=== PATIENT | female | born 1965 | race Caucasian/White ===

== ENCOUNTER 2017-05-04 15:12 | Observation (INO) | payer OTHER ==
[~2017-05-04] VITALS: Ht 152.4 cm; Wt 88.5 kg
[~2017-05-04 15:12] MED LIST: ESTR1 PO; REST30CA PO; ZOCO40TA PO
--- NOTE | 2017-05-04 15:19 | PD ---
Physical Exam Time Seen by Provider: 15:17 Narrative 59-year-old female presents emergency Department with complaint of right-sided facial droop that she noticed last night around 8 or 9:00pm. Went to urgent care and was told to come to the emergency department. Denies any other focal deficits or weakness. Reports right-sided headache. Right-sided facial droop noted in triage. Speech clear. Patient seen in triage. Vital signs reviewed. Patient awaiting bed placement. MDM Supervised Visit with GREG: Joselyn Locke May 04, 2017 15:19
[2017-05-04 16:48] VITALS: BP 168/75; PULSE 90; RESP 15; TEMP 97.9; O2SAT 98
[2017-05-04 16:56] VITALS: O2SAT 99
[2017-05-04] MEDS ORDERED: SODIUM CHLORIDE 0.9% FLUSH 10 ML FLUSH IVF PRN (17:00)
--- NOTE | 2017-05-04 17:00 | PD ---
HPI Chief Complaint: Neuro Symptoms/ Deficits Time Seen by Provider: 16:51 Travel History International Travel<30 days: No Contact w/Intl Traveler<30days: No Traveled to known affect area: No History of Present Illness HPI 51-year-old female patient with history of lupus, presents to the ER today because of right sided neck pain that started when she bent her neck last night , and woke up this morning noticing a right facial droop. She did not have any trouble walking, talking, arm or leg numbness or weakness, or any other symptoms. She still complains of a headache as well. She had been seen at an urgent care and was told to come to the ER for further evaluation. No vomiting or other symptoms. Modifying Factors: None Associated Signs & Symptoms: Right sided neck pain, right facial droop, headache Risk Factors: None PFSH Past Medical History Autoimmune Disease: Yes (LUPUS) Cancer: No Cardiovascular Problems: No Glaucoma: No Hepatitis: No Hiatal Hernia: No Hypertension: No Neurologic: No Respiratory: No Thyroid Disease: No ?: Not Past Surgical History Eye Surgery: Yes (LEFT EYE FOR GLASS) Gynecologic Surgery: Yes (HYSTERECTOMY) Hysterectomy: Yes Other Surgery: Yes (HERNIA) Social History Alcohol Use: No Tobacco Use: Yes (1 PACK A DAY FOR 20 YEARS, STOPPED 09/02) Substance Use: No Allergies-Medications (Allergen,Severity, Reaction): Coded Allergies: aspirin (Unverified Allergy, Mild, Nausea/Vomiting, 05/04/17) ibuprofen (Unverified Allergy, Mild, CRAMPS, 05/04/17) Reported Meds & Prescriptions Reported Meds & Active Scripts Active Reported Vitamin D-1000 (Cholecalciferol) 1,000 Unit Tab 1,000 Units PO DAILY Levothyroxine (Levothyroxine Sodium) 100 Mcg Tab 100 Mcg PO DAILY Trazodone (Trazodone HCl) 150 Mg Tablet 150 Mg PO HS Cymbalta DR (Duloxetine HCl) 60 Mg Capdr 60 Mg PO BID Gabapentin 600 Mg Tab 600 Mg PO TID Gabapentin 300 Mg Cap 900 Mg PO HS Review of Systems Except as stated in HPI: all other systems reviewed are Neg Physical Exam Narrative GENERAL: Well-developed middle age white female patient currently in mild distress. Awake and oriented 3. SKIN: Focused skin assessment warm/dry. HEAD: Atraumatic. Normocephalic. EYES: Pupils equal and round. No scleral icterus. No injection or drainage. ENT: No nasal bleeding or discharge. Mucous membranes pink and moist. NECK: Trachea midline. No JVD. CARDIOVASCULAR: Regular rate and rhythm. No murmur appreciated. RESPIRATORY: No accessory muscle use. Clear to auscultation. Breath sounds equal bilaterally. GASTROINTESTINAL: Abdomen soft, non-tender, nondistended. Hepatic and splenic margins not palpable. MUSCULOSKELETAL: No obvious deformities. No clubbing. No cyanosis. No edema. NEUROLOGICAL: Awake and alert. Ambulatory in the ER. Notable right facial droop, CN II-12 otherwise grossly intact. Motor grossly within normal limits. Normal speech. No pronator drift. PSYCHIATRIC: Appropriate mood and affect; insight and judgment normal. Data Data Last Documented VS Vital Signs Date Time Temp Pulse Resp B/P (MAP) Pulse Ox O2 Delivery O2 Flow Rate FiO2 05/04/17 16:56 99 Room Air 05/04/17 16:48 97.9 90 15 Orders Orders Electrocardiogram (05/04/17 16:51) Prothrombin Time / Inr (Pt) (05/04/17 16:51) Act Partial Throm Time (Ptt) (05/04/17 16:51) Complete Blood Count With Diff (05/04/17 16:51) Comprehensive Metabolic Panel (05/04/17 16:51) Ct Brain W/O Iv Contrast(Rout) (05/04/17 16:51) Ecg Monitoring (05/04/17 16:51) Iv Access Insert/Monitor (05/04/17 16:51) Oximetry (05/04/17 16:51) Sodium Chloride 0.9% Flush (Ns Flush) (05/04/17 17:00) Ct Cerv Spine W/O Contrast (05/04/17 16:51) Dexamethasone Inj (Decadron Inj) (05/04/17 19:15) Aspirin Ec (Ecotrin Ec) (05/04/17 19:15) Mri Brain W&W/O Contrast (05/04/17 19:11) Mra Brain W/O Contrast (Cow) (05/04/17 19:11) Mra Carotids W Contrast (05/04/17 19:11) Admit Order (Ed Use Only) (05/04/17 19:39) Labs Laboratory Tests Test 05/04/17 17:10 White Blood Count 6.3 TH/MM3 Red Blood Count 4.64 MIL/MM3 Hemoglobin 13.5 GM/DL Hematocrit 41.1 % Mean Corpuscular Volume 88.6 FL Mean Corpuscular Hemoglobin 29.2 PG Mean Corpuscular Hemoglobin Concent 32.9 % Red Cell Distribution Width 13.3 % Platelet Count 295 TH/MM3 Mean Platelet Volume 7.3 FL Neutrophils (%) (Auto) 54.2 % Lymphocytes (%) (Auto) 36.8 % Monocytes (%) (Auto) 6.6 % Eosinophils (%) (Auto) 1.5 % Basophils (%) (Auto) 0.9 % Neutrophils # (Auto) 3.4 TH/MM3 Lymphocytes # (Auto) 2.3 TH/MM3 Monocytes # (Auto) 0.4 TH/MM3 Eosinophils # (Auto) 0.1 TH/MM3 Basophils # (Auto) 0.1 TH/MM3 CBC Comment DIFF FINAL Differential Comment Prothrombin Time 10.2 SEC Prothromb Time International Ratio 0.9 RATIO Activated Partial Thromboplast Time 26.2 SEC Blood Urea Nitrogen 14 MG/DL Creatinine 1.01 MG/DL Random Glucose 82 MG/DL Total Protein 7.9 GM/DL Albumin 3.9 GM/DL Calcium Level 9.2 MG/DL Alkaline Phosphatase 105 U/L Aspartate Amino Transf (AST/SGOT) 15 U/L Alanine Aminotransferase (ALT/SGPT) 27 U/L Total Bilirubin 0.2 MG/DL Sodium Level 138 MEQ/L Potassium Level 4.2 MEQ/L Chloride Level 103 MEQ/L Carbon Dioxide Level 29.8 MEQ/L Anion Gap 5 MEQ/L Estimat Glomerular Filtration Rate 58 ML/MIN [facility] Medical Decision Making Medical Screen Exam Complete: Yes Emergency Medical Condition: Yes Medical Record Reviewed: Yes Interpretation(s) EKG shows NSR, no ST elevation or depression, and no arrhythmias. No significant T-wave inversions. Laboratory Tests Test 05/04/17 17:10 Creatinine 1.01 MG/DL (0.50-1.00) Estimat Glomerular Filtration Rate 58 ML/MIN (>89) Last [address] 05/04/171650 Signed Impressions: Service Date/Time: Thursday, May 04, 2017 17:40 - CONCLUSION: Normal examination for a patient of this age. Rinku Latham MD Cervical Spine CT 05/04/171650 Signed Impressions: Service Date/Time: Thursday, May 04, 2017 17:40 - CONCLUSION: Mild primary degenerative type changes at C4-5 and C5-6 characteristic of patients age. Rinku Latham MD Differential Diagnosis Right facial droop, right sided neck pain: Radiculopathy versus Hernadez's palsy versus central related neuropathy versus CVA Narrative Course CAT scan did not show any obvious acute processes. Patient's neck is supple on evaluation. She has no other focal neurological deficits except for the facial symptoms. I actually do see some asymmetry in her forehead although this case does present some other underlying symptoms and the case was discussed with Dr. Gupta who states that the patient should get an MRI/MRA of the brain and carotid for further evaluation to rule out carotid dissection. He wants me to give Decadron and low dose aspirin. Case is discussed with Dr. Sorenson for admission. Diagnosis Primary Impression: Facial droop Admitting Information Admitting Physician Requests: Admit Desi Zhou MD May 04, 2017 17:00
[2017-05-04] MEDS ORDERED: GABA300C5 PO (17:04)
[2017-05-04] MEDS ORDERED: CYMB60CA PO (17:04)
[2017-05-04] MEDS ORDERED: TRAZ1TAB45 PO (17:04)
[2017-05-04] MEDS ORDERED: VITA1000 PO (17:04)
[2017-05-04] MEDS ORDERED: GABA600T PO (17:04)
[2017-05-04] MEDS ORDERED: LEVO100T5 PO (17:04)
[2017-05-04 17:17] LABS: HEMATOCRIT 41.1 % (35.0-46.0); MEAN CELL VOLUME 88.6 FL (80.0-100.0); MEAN CORPUSCULAR HEMOGLOBIN 29.2 PG (27.0-34.0); MEAN CORPUSCULAR HGB CONC 32.9 % (32.0-36.0); RED BLOOD COUNT 4.64 MIL/MM3 (4.00-5.30); WHITE BLOOD COUNT 6.3 TH/MM3 (4.0-11.0)
[2017-05-04 17:18] LABS: AUTOMATED NEUTROPHIL # 3.4 TH/MM3 (1.8-7.7); BASOPHIL # 0.1 TH/MM3 (0-0.2); BASOPHIL % 0.9 % (0.0-2.0); EOSINOPHIL # 0.1 TH/MM3 (0-0.4); EOSINOPHIL % 1.5 % (0.0-4.0); HEMO FLAGS DIFF FINAL; LYMPH % 36.8 % (9.0-44.0); LYMPHOCYTE # 2.3 TH/MM3 (1.0-4.8); MONO % 6.6 % (0.0-8.0); NEUT % 54.2 % (16.0-70.0); PLATELET COUNT 295 TH/MM3 (150-450); RED CELL DISTRIBUTION WIDTH 13.3 % (11.6-17.2)
[2017-05-04 17:26] LABS: APTT (PATIENT) 26.2 SEC (24.3-30.1); INTERNATIONAL NORMALIZED RATIO 0.9 RATIO; PROTHROMBIN TIME - PATIENT 10.2 SEC (9.8-11.6)
[2017-05-04 17:38] LABS: ALT (GPT) 27 U/L (10-53); ANION GAP 5 MEQ/L (5-15); AST (GOT) 15 U/L (15-37); BICARBONATE 29.8 MEQ/L (21.0-32.0); BLOOD UREA NITROGEN 14 MG/DL (7-18); CHLORIDE 103 MEQ/L (98-107); GLOMERULAR FILTRATION RATE 58 ML/MIN (>89); POTASSIUM 4.2 MEQ/L (3.5-5.1); SODIUM (NA) 138 MEQ/L (136-145)
[2017-05-04 17:40] LABS: ALKALINE PHOSPHATASE 105 U/L (45-117); TOTAL BILIRUBIN ADULT 0.2 MG/DL (0.2-1.0)
--- NOTE | 2017-05-04 17:47 | RADRPT ---
EXAM DATE/TIME: 05/04/2017 17:40 [facility] COMPARISON: No previous studies available for comparison. INDICATIONS : Right sided weakness since last night. RADIATION DOSE: 31.84 CTDIvol (mGy) MEDICAL HISTORY : Lupus SURGICAL HISTORY : Hysterectomy. ENCOUNTER: Initial ACUITY: 2 days PAIN SCALE: 8/10 LOCATION: Right cranial TECHNIQUE: Multiple contiguous axial images were obtained of the head. Using automated exposure control and adj ustment of the mA and/or kV according to patient size, radiation dose was kept as low as reasonably a chievable to obtain optimal diagnostic quality images. DICOM format image data is available electro nically for review and comparison. FINDINGS: CEREBRUM: The ventricles are normal for age. No evidence of midline shift, mass lesion, hemorrhage or acute in farction. No extra-axial fluid collections are seen. POSTERIOR FOSSA: The cerebellum and brainstem are intact. The 4th ventricle is midline. The cerebellopontine angle i s unremarkable. EXTRACRANIAL: The visualized portion of the orbits is intact. SKULL: The calvaria is intact. No evidence of skull fracture. CONCLUSION: Normal examination for a patient of this age. Rinku Latham MD on May 04, 2017 at 17:45 Board Certified Radiologist. This report was verified electronically.
--- NOTE | 2017-05-04 18:08 | RADRPT ---
EXAM DATE/TIME: 05/04/2017 17:40 [facility] COMPARISON: No previous studies available for comparison. INDICATIONS : Neck pain since last night. RADIATION DOSE: 20.10 CTDIvol (mGy) MEDICAL HISTORY : Lupus. SURGICAL HISTORY : Hysterectomy. ENCOUNTER: Initial ACUITY: 2 days PAIN SCALE: 6/10 LOCATION: Right neck region. TECHNIQUE: Volumetric scanning of the cervical spine was performed. Multiplanar reconstructions in the sagittal, coronal and oblique axial planes were performed. Using automated exposure control and adjustment o f the mA and/or kV according to patient size, radiation dose was kept as low as reasonably achievable to obtain optimal diagnostic quality images. DICOM format image data is available electronically f or review and comparison. FINDINGS: VERTEBRAE: Normal vertebral body height. There are mild degenerative type changes involving the cervical spine a t C4-5 and C5-6. No compression fracture injuries are demonstrated. ALIGNMENT: No evidence of subluxation. C2-C3: The bony spinal canal is normal in size. No evidence of disc bulge or herniation. The neural forami na are bilaterally patent. C3-C4: The bony spinal canal is normal in size. No evidence of disc bulge or herniation. The neural forami na are bilaterally patent. C4-C5: The bony spinal canal is normal in size. No evidence of disc bulge or herniation. The neural forami na are bilaterally patent. C5-C6: The bony spinal canal is normal in size. No evidence of disc bulge or herniation. The neural forami na are bilaterally patent. C6-C7: The bony spinal canal is normal in size. No evidence of disc bulge or herniation. The neural forami na are bilaterally patent. C7-T1: The bony spinal canal is normal in size. No evidence of disc bulge or herniation. The neural forami na are bilaterally patent. CONCLUSION: Mild primary degenerative type changes at C4-5 and C5-6 characteristic of patients age. Rinku Lahtam MD on May 04, 2017 at 18:04 Board Certified Radiologist. This report was verified electronically.
[2017-05-04] MEDS ORDERED: ASPIRIN EC 81 MG TABEC PO ONE (19:15)
[2017-05-04] MEDS ORDERED: DEXAMETHASONE SOD PHOS 20 MG/5 ML VIAL IV PUSH ONE (19:15)
[2017-05-04] MEDS ORDERED: SODIUM CHLOR 0.45% 1000 ML INJ 1,000 ML IV SCH (21:00)
--- NOTE | 2017-05-04 21:10 | RADRPT ---
EXAM DATE/TIME: 05/04/2017 20:33 [facility] COMPARISON: No previous studies available for comparison. INDICATIONS : Right side facial paralysis MEDICAL HISTORY : None. SURGICAL HISTORY : Hysterectomy. Hernia, Eyes (f/b removal), Carpal Tunnel ENCOUNTER: Initial ACUITY: 1 day PAIN SCORE: 0/10 LOCATION: cranial Please note a normal MRA of the brain does not entirely exclude the possibility of a small aneurysm, nor the possibility of distal intracranial vessel disease. TECHNIQUE: 3D time of flight MRA was performed. Source images, multiplanar STS MIP, and 3D volume MIP reconstru ctions were reviewed. FINDINGS: There is excellent visualization of the major intracranial arteries out to the second-order branch ve ssels. There is no evidence for aneurysm, vessel truncation or stenosis, and no evidence for vascula r malformation. CONCLUSION: Normal examination for a patient of this age. Rinku Latham MD on May 04, 2017 at 21:07 Board Certified Radiologist. This report was verified electronically.
[2017-05-04] MEDS ORDERED: ACETAMINOPHEN/HYDROcodone 325 MG/5 MG TAB PO PRN (21:15)
[2017-05-04] MEDS ORDERED: SENNOSIDES 8.6 MG TAB PO PRN (21:15)
[2017-05-04] MEDS ORDERED: BISACODYL 10 MG SUPP RECTAL PRN (21:15)
[2017-05-04] MEDS ORDERED: LACTULOSE SYRUP 20 GM/30 ML CUP PO PRN (21:15)
[2017-05-04] MEDS ORDERED: ACETAMINOPHEN 325 MG TAB PO PRN (21:15)
[2017-05-04] MEDS ORDERED: NALOXONE HCL 0.4 MG/ML AMP IV PUSH PRN (21:15)
[2017-05-04] MEDS ORDERED: MAGNESIUM HYDROXIDE SUSP 30 ML CUP PO PRN (21:15)
[2017-05-04] MEDS ORDERED: SODIUM CHLORIDE 0.9% FLUSH 10 ML FLUSH IV FLUSH PRN (21:15)
--- NOTE | 2017-05-04 21:22 | HHI.HP ---
HPI Service [facility] Hospitalists Primary Care Physician Hussain Mac MD Admission Diagnosis facial droop/possible CVA Chief Complaint: facial droop today with headache Travel History International Travel<30 Days: No Contact w/Intl Traveler <30 Da: No Traveled to Known Affected Are: No History of Present Illness 51-year-old female patient with history of lupus, presents to the ER today because of right sided neck pain that started when she bent her neck last night , and woke up this morning noticing a right facial droop. She did not have any trouble walking, talking, arm or leg numbness or weakness, or any other symptoms except for headache. She still complains of a headache as well. She had been seen at an urgent care and was told to come to the ER for further evaluation. No vomiting or other symptoms. Patient does have neuropathy and lupus and has been on gabapentin and cymbalta. Review of Systems Neurologic: COMPLAINS OF: Headache Other facial droop Past Family Social History Past Medical History lupus , neuropathy hypothyroid Past Surgical History hysterectomy,hernia,left eye surgery glass accident Reported Medications [id number] bid,gabapentin 600 tid 900 hs trazadone 150 levothyroxine 100 vit k Allergies: Coded Allergies: aspirin (Unverified Allergy, Mild, Nausea/Vomiting, 05/04/17) ibuprofen (Unverified Allergy, Mild, CRAMPS, 05/04/17) Social History smoked until 09/02 no ETOH Physical Exam Vital Signs Vital Signs Date Time Temp Pulse Resp B/P (MAP) Pulse Ox O2 Delivery O2 Flow Rate FiO2 05/04/17 16:56 99 Room Air 05/04/17 16:48 97.9 90 15 168/75 (106) 98 Room Air Physical Exam GENERAL: This is a well-nourished, well-developed patient, in no apparent distress. SKIN: No rashes, ecchymoses or lesions. Cool and dry. HEAD: Atraumatic. Normocephalic. No temporal or scalp tenderness. EYES: Pupils equal round and reactive. Extraocular motions intact. No scleral icterus. No injection or drainage. ENT: Nose without bleeding, purulent drainage or septal hematoma. Throat without erythema, tonsillar hypertrophy or exudate. Uvula midline. Airway patent. NECK: Trachea midline. No JVD or lymphadenopathy. Supple, nontender, no meningeal signs. CARDIOVASCULAR: Regular rate and rhythm without murmurs, gallops, or rubs. RESPIRATORY: Clear to auscultation. Breath sounds equal bilaterally. No wheezes , rales, or rhonchi. GASTROINTESTINAL: Abdomen soft, non-tender, nondistended. No hepato-splenomegaly , or palpable masses. No guarding. MUSCULOSKELETAL: Extremities without clubbing, cyanosis, or edema. No joint tenderness, effusion, or edema noted. No calf tenderness. Negative Homans sign bilaterally. NEUROLOGICAL: Awake and alert. RT facial droop . Motor and sensory grossly within normal limits. Five out of 5 muscle strength in all muscle groups. Normal speech. Laboratory Laboratory Tests Test 05/04/17 17:10 White Blood Count 6.3 Red Blood Count 4.64 Hemoglobin 13.5 Hematocrit 41.1 Mean Corpuscular Volume 88.6 Mean Corpuscular Hemoglobin 29.2 Mean Corpuscular Hemoglobin Concent 32.9 Red Cell Distribution Width 13.3 Platelet Count 295 Mean Platelet Volume 7.3 Neutrophils (%) (Auto) 54.2 Lymphocytes (%) (Auto) 36.8 Monocytes (%) (Auto) 6.6 Eosinophils (%) (Auto) 1.5 Basophils (%) (Auto) 0.9 Neutrophils # (Auto) 3.4 Lymphocytes # (Auto) 2.3 Monocytes # (Auto) 0.4 Eosinophils # (Auto) 0.1 Basophils # (Auto) 0.1 CBC Comment DIFF FINAL Differential Comment Prothrombin Time 10.2 Prothromb Time International Ratio 0.9 Activated Partial Thromboplast Time 26.2 Blood Urea Nitrogen 14 Creatinine 1.01 Random Glucose 82 Total Protein 7.9 Albumin 3.9 Calcium Level 9.2 Alkaline Phosphatase 105 Aspartate Amino Transf (AST/SGOT) 15 Alanine Aminotransferase (ALT/SGPT) 27 Total Bilirubin 0.2 Sodium Level 138 Potassium Level 4.2 Chloride Level 103 Carbon Dioxide Level 29.8 Anion Gap 5 Estimat Glomerular Filtration Rate 58 Result Diagram: 05/04/17170905/04/171709 Imaging Last [address] 05/04/171650 Signed Impressions: Service Date/Time: Thursday, May 04, 2017 17:40 - CONCLUSION: Normal examination for a patient of this age. Rinku Latham MD Cervical Spine CT 05/04/171650 Signed Impressions: Service Date/Time: Thursday, May 04, 2017 17:40 - CONCLUSION: Mild primary degenerative type changes at C4-5 and C5-6 characteristic of patients age. Rinku Latham MD Course ER contacted neurology wants decadron and asa given obtain mri mra scan and admit Caprini VTE Risk Assessment Caprini VTE Risk Assessment: Mod/High Risk (score >= 2) Caprini Risk Assessment Model Point Value = 1 Point Value = 2 Point Value = 3 Point Value = 5 Age 41-60 Minor surgery BMI > 25 kg/m2 Swollen legs Varicose veins or History of unexplained or recurrent spontaneous Oral contraceptives or hormone replacement Sepsis (< 1 month) Serious lung disease, including pneumonia (< 1 month) Abnormal pulmonary function Acute myocardial infarction Congestive heart failure (< 1 month) History of inflammatory bowel disease Medical patient at bed rest Age 61-74 Arthroscopic surgery Major open surgery (> 45 min) Laparoscopic surgery (> 45 min) Malignancy Confined to bed (> 72 hours) Immobilizing plaster cast Central venous access Age >= 75 History of VTE Family history of VTE Factor V Leiden Prothrombin [id number] Lupus anticoagulant Anticardiolipin antibodies Elevated serum homocysteine Heparin-induced thrombocytopenia Other congenital or acquired thrombophilia Stroke (< 1 month) Elective arthroplasty Hip, pelvis, or leg fracture Acute spinal cord injury (< 1 month) Prophylaxis Regimen Total Risk Factor Score Risk Level Prophylaxis Regimen 0-1 Low Early ambulation 2 Moderate Order ONE of the following: *Sequential Compression Device (SCD) *Heparin 5000 units SQ BID 3-4 Higher Order ONE of the following medications: *Heparin 5000 units SQ TID *Enoxaparin/Lovenox 40 mg SQ daily (WT < 150 kg, CrCl > 30 mL/min) *Enoxaparin/Lovenox 30 mg SQ daily (WT < 150 kg, CrCl > 10-29 mL/min) *Enoxaparin/Lovenox 30 mg SQ BID (WT < 150 kg, CrCl > 30 mL/min) AND/OR *Sequential Compression Device (SCD) 5 or more Highest Order ONE of the following medications: *Heparin 5000 units SQ TID (Preferred with Epidurals) *Enoxaparin/Lovenox 40 mg SQ daily (WT < 150 kg, CrCl > 30 mL/min) *Enoxaparin/Lovenox 30 mg SQ daily (WT < 150 kg, CrCl > 10-29 mL/min) *Enoxaparin/Lovenox 30 mg SQ BID (WT < 150 kg, CrCl > 30 mL/min) AND *Sequential Compression Device (SCD) Assessment and Plan Problem List: (1) Facial droop ICD Codes: R29.810 - Facial weakness Status: Acute Plan: will admit r/o cva mri mra as per neurology decadron and asa (2) Headache ICD Codes: R51 - Headache Status: Acute Plan: mri mra tylenol and may use loratab (3) Lupus ICD Codes: 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 In the case of services not specified as inpatient-only, they are appropriately provided as inpatient services in accordance with the 2-midnight benchmark. Estimated LOS (days): 2 2 days is the estimated time the patient will need to remain in the hospital, assuming treatment plan goals are met and no additional complications. Post-Hospital Plan: Not yet determined Marcel Tapia MD May 04, 2017 21:22
--- NOTE | 2017-05-04 21:56 | RADRPT ---
EXAM DATE/TIME: 05/04/2017 20:33 [facility] COMPARISON: CT BRAIN W/O CONTRAST, May 04, 2017, 17:40. INDICATIONS : Right side facial paralysis CONTRAST: 20 cc Omniscan (gadodiamide) IV MEDICAL HISTORY : None. SURGICAL HISTORY : Hysterectomy. Eyes (f/b removal), hernia, carpal tunnel ENCOUNTER: Initial ACUITY: 1 day PAIN SCORE: 0/10 LOCATION: cranial TECHNIQUE: Multiplanar, multisequence MRI of the brain was performed both prior to and following the administrat ion of paramagnetic contrast. FINDINGS: CEREBRUM: The ventricles are normal for age. No evidence of midline shift, mass lesion, hemorrhage or acute in farction. No extraaxial fluid collections are seen. The pituitary gland and suprasellar cistern are normal in configuration. WHITE MATTER: No significant signal abnormalities are seen in the white matter. POSTERIOR FOSSA: The cerebellum and brainstem are intact. The 4th ventricle is midline. The cerebellopontine angle is unremarkable. The cerebellar tonsils are normal in position. DIFFUSION IMAGING: No focal areas of restricted diffusion are seen. No evidence of acute infarction. EXTRACRANIAL: The visualized portions of the orbits and paranasal sinuses are unremarkable. POST-CONTRAST: No abnormal areas of parenchymal or dural enhancement. No evidence of blood-brain barrier breakdown. CONCLUSION: Normal examination for a patient of this age. Rinku Latham MD on May 04, 2017 at 21:53 Board Certified Radiologist. This report was verified electronically.
--- NOTE | 2017-05-04 22:03 | RADRPT ---
EXAM DATE/TIME: 05/04/2017 20:33 [facility] COMPARISON: No previous studies available for comparison. INDICATIONS : Right side facial paralysis CONTRAST: 20 cc Omniscan (gadodiamide) IV MEDICAL HISTORY : None. SURGICAL HISTORY : Hysterectomy. Eyes (f/b removal), Hernia, Carpal Tunnel ENCOUNTER: Initial ACUITY: 1 day PAIN SCORE: 0/10 LOCATION: cranial Percent stenosis is calculated using the diameter of the stenotic region over the diameter of the nor mal distal internal carotid artery. TECHNIQUE: Bolus infused MRA of the extracranial circulation was performed using a neurovascular coil. Post pro cessing was performed including rotating subvolume maximum intensity projections of each carotid favian ry, rotating full volume maximum intensity projections of both carotid arteries, sagittal and coronal sliding thin slab reformations of each carotid artery, and left oblique sliding thin slab reformatio n through the aortic arch to include the origin of the arch branch vessels. FINDINGS: AORTIC ARCH: There is a three vessel origin of the great vessels from the aorta. No evidence of ostial narrowing. RIGHT CAROTID: The common carotid artery is intact. The carotid bulb has a normal configuration without ulceration or narrowing. The internal carotid artery lumen is smooth without stenosis. The external carotid ar elizabeth is intact. LEFT CAROTID: The common carotid artery is intact. The carotid bulb has a normal configuration without ulceration or narrowing. The internal carotid artery lumen is smooth without stenosis. The external carotid ar elizabeth is intact. VERTEBRALS: The vertebral arteries have a symmetric diameter. No stenotic lesions are seen. CONCLUSION: Normal examination for a patient of this age. Rinku Latham MD on May 04, 2017 at 22:01 Board Certified Radiologist. This report was verified electronically.
[2017-05-04] MEDS ORDERED: GADODIAMIDE PF 287 MG/ML 5 ML VIAL (for RAD MRI) IVCONTRAST ONE (22:17)
[2017-05-04] MEDS ORDERED: traZODone HCL 100 MG TAB PO SCH (23:15)
[2017-05-04] MEDS ORDERED: DULoxetine HCl DR 60 MG CAP PO SCH (23:15)
[2017-05-04] MEDS ORDERED: GABAPENTIN 300 MG CAP PO SCH (23:15)
[2017-05-05] VITALS: BP 118/70; PULSE 74; RESP 20; TEMP 97.9; O2SAT 94
[2017-05-05 04:00] VITALS: BP 123/66; PULSE 96; RESP 20; TEMP 98; O2SAT 92
[2017-05-05] MEDS ORDERED: LEVOTHYROXINE SODIUM 100 MCG TAB PO SCH (07:00)
[2017-05-05 08:00] VITALS: BP 111/64; PULSE 103; RESP 16; TEMP 98.4; O2SAT 93
[2017-05-05] MEDS ORDERED: SODIUM CHLORIDE 0.9% FLUSH 10 ML FLUSH IV FLUSH SCH (09:00)
[2017-05-05] MEDS ORDERED: DULoxetine HCl DR 60 MG CAP PO SCH (09:00)
[2017-05-05] MEDS ORDERED: DOCUSATE SODIUM 50 MG/SENNA 8.6 MG TAB PO SCH (09:00)
[2017-05-05] MEDS ORDERED: CHOLECALCIFEROL (VIT D3) 1000 UNIT TAB PO SCH (09:00)
[2017-05-05] MEDS: GABAPENTIN 300 MG CAP PO SCH ×2 (09:31→13:39)
[2017-05-05 12:00] VITALS: BP 117/74; PULSE 104; RESP 16; TEMP 99.1; O2SAT 95
--- NOTE | 2017-05-05 12:13 | EKG ---
Date Performed: 05/04/2017 Time Performed: 17:19:28 PTAGE: 51 years EKG: Sinus rhythm NORMAL ECG Compared to prior tracing no significant change PREVIOUS TRACING : 02/17/2009 08.45 DOCTOR: Amarilis Sampson Interpretating Date/Time 05/05/2017 12:12:04
[2017-05-05] MEDS ORDERED: valACYclovir HCL 500 MG TAB PO ONE (14:45)
[2017-05-05] MEDS ORDERED: methylPREDNISolone SOD SUCC 125 MG/2 ML VIAL IV PUSH ONE (14:45)
[2017-05-05] MEDS ORDERED: HYDR-3516 PO (14:50)
[2017-05-05] MEDS ORDERED: VALT500T PO (14:50)
[2017-05-05] MEDS ORDERED: PRED20 PO (14:50)
--- NOTE | 2017-05-05 14:59 | HHI.PR ---
Subjective Remarks Pt c/o on going right sided facial droop. Pt able to close right eye without difficulties. Objective Vitals Vital Signs Date Time Temp Pulse Resp B/P (MAP) Pulse Ox O2 Delivery O2 Flow Rate FiO2 05/05/17 12:00 99.1 104 16 117/74 (88) 95 05/05/17 08:00 98.4 103 16 111/64 (80) 93 05/05/17 04:00 98.0 96 20 123/66 (85) 92 05/05/17 00:00 97.9 74 20 118/70 (86) 94 05/04/17 16:56 99 Room Air 05/04/17 16:48 97.9 90 15 168/75 (106) 98 Room Air Result Diagram: 05/04/17170905/04/171709 Imaging Last Impressions Neck Magnetic Resonance Angiography 05/04/171910 Signed Impressions: Service Date/Time: Thursday, May 04, 2017 20:33 - CONCLUSION: Normal examination for a patient of this age. Rinku Latham MD Head Magnetic Resonance Angiography 05/04/171910 Signed Impressions: Service Date/Time: Thursday, May 04, 2017 20:33 - CONCLUSION: Normal examination for a patient of this age. Rinku Latham MD Brain MRI 05/04/171910 Signed Impressions: Service Date/Time: Thursday, May 04, 2017 20:33 - CONCLUSION: Normal examination for a patient of this age. Rinku Latham MD Head CT 05/04/171650 Signed Impressions: Service Date/Time: Thursday, May 04, 2017 17:40 - CONCLUSION: Normal examination for a patient of this age. Rinku Latham MD Cervical Spine CT 05/04/171650 Signed Impressions: Service Date/Time: Thursday, May 04, 2017 17:40 - CONCLUSION: Mild primary degenerative type changes at C4-5 and C5-6 characteristic of patients age. Rinku Latham MD Objective Remarks GENERAL: This is a well-nourished, well-developed patient, in no apparent distress. CARDIOVASCULAR: Regular rate and rhythm without murmurs, gallops, or rubs. RESPIRATORY: Clear to auscultation. Breath sounds equal bilaterally. No wheezes , rales, or rhonchi. GASTROINTESTINAL: Abdomen soft, non-tender, nondistended. Normal active bowel sounds MUSCULOSKELETAL: Extremities without clubbing, cyanosis, or edema. NEURO: A&Ox3, right facial droop, loss of right nasolabial fold, muscle strength intact and symmetrical at both UEs and LEs. A/P Problem List: (1) Facial droop ICD Codes: R29.810 - Facial weakness Status: Acute Plan: - comgmt with Neurology - Pt seen at bedside together with Dr. 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 Hussain Mac in 1 week (2) Headache ICD Codes: R51 - Headache Status: Resolved Plan: - see above (3) Lupus ICD Codes: L93.0 - Discoid lupus erythematosus Status: Chronic Plan: continue home meds gabapentin and cymbalta (4) Hypothyroid ICD Codes: E03.9 - Hypothyroidism, unspecified Plan: - TSH 1.28 (05/05) - continue synthroid 112mcg daily - f/u with PCP, Dr. Mac in 1-2 weeks and repeat TSH/free T4 Bradford Craven DO May 05, 2017 14:59
--- NOTE | 2017-05-05 15:35 | MB ---
cc: FROILAN CRYSTAL DATE OF CONSULTATION: 05/05/2017 REASON FOR CONSULTATION Facial weakness. HISTORY OF PRESENT ILLNESS Ms. Vaughan is a very nice 52-year-old woman who two days ago noted some weakness of the right side of her face which has been progressing. She has had no other neurologic symptoms at all. PAST MEDICAL HISTORY 1. She has some type of autoimmune disorder, possibly lupus. 2. History of possible thyroiditis. 3. Neuropathy. 4. Hypothyroidism. ALLERGIES ASPIRIN, IBUPROFEN. MEDICATIONS Current medications: 1. Gabapentin 900 mg at bedtime. 2. Desyrel. 3. Chani-Colace. 4. Vitamin D. 5. Cymbalta. 6. Gabapentin 600 mg t.i.d. 7. Synthroid. 8. Hydrocodone p.r.n. pain. NEUROLOGIC EXAMINATION VITAL SIGNS: Blood pressure is 123/66, temperature 98 degrees. NEURO: Higher cortical function is normal. Cranial nerves: She has a right lower motor neuron VII palsy. Other cranial nerves are completely normal. Motor exam is 5/5 strength of all groups. There is no drift. Fine motor skills normal. IMAGING STUDIES MRI of the brain is within normal limits. MRA of the brain is normal. MRA of the neck is normal. CT cervical spine shows mild degenerative arthritis, C4-5, C5-6, no significant stenosis is seen. LABORATORY DATA White count 6300, hemoglobin 13.5, hematocrit 41%, platelet count 295,000. Sodium is 138, potassium 4.2, chloride 103, CO2 29.8, BUN is 14, creatinine 1.01, AST 15, ALT 27, TSH 0.128. PT 10.2, APTT 26.2. IMPRESSION Right Hernadez's palsy. RECOMMENDATIONS Prednisone taper at 60 mg, to start daily, to taper by 10 mg every 2 days until off. Also recommend Valtrex 500 mg t.i.d. for 10 days. I did discuss with the patient to get artificial tears to keep the right eye well lubricated. She is safe from the neurologic standpoint for discharge today. Follow up with me in 2 weeks. MD STU Henry/IRINA /2:32 PM /3:15 PM
[2017-05-05] MEDS ORDERED: IBUPROFEN 600 MG TAB PO SCH (18:00)
[2017-05-05] MEDS ORDERED: GABAPENTIN 300 MG CAP PO SCH (21:00)
[2017-05-05] MEDS ORDERED: traZODone HCL 100 MG TAB PO SCH (21:00)
== END 2017-05-05 17:00 | disposition home or self-care (01) ==
LOC: NEPC 15:12 → INTOOBSV 19:41 → NEDA 19:41 → N05A 21:58
PROVIDERS: ADMIT Hospitalist; ATTEND Hospitalist
DX: R29.810 Facial weakness (principal); R51 Headache; L93.0 Discoid lupus erythematosus; E03.9 Hypothyroidism, unspecified; G62.9 Polyneuropathy, unspecified; Z87.891 Personal history of nicotine dependence; Z79.899 Other long term (current) drug therapy
CPT/HCPCS: 70450; 70544; 70548; 70553; 72125; 80053; 84443; 85025; 85610; 85730; 92610; 93005; 96374; 99285; A9579; G0378; G8996; G8997; G8998; J1100; J2930